=== PATIENT | female | born 1950 | race African-American/Black ===

== ENCOUNTER 2016-05-05 16:37 | Emergency (ER) | payer MEDICARE, OTHER ==
[2016-05-05 15:53] LABS: BASOPHILS 0.2 %; BASOPHILS ABSOLUTE 0.01 10/3/uL (0.0-0.16); EOSINOPHILS 4.9 %; EOSINOPHILS ABSOLUTE 0.27 10/3/uL (0.0-0.53); ER CBC TAT 0 Hrs 07 Mins; HEMATOCRIT 35.5 % (36.0-48.0); HEMOGLOBIN 11.6 g/dL (12.0-16.0); IMMATURE GRANULOCYTES 0.2 %; IMMATURE GRANULOCYTES ABSOLUTE 0.01 10/3/uL (0.0-0.11); LYMPHOCYTES 35.5 %; LYMPHOCYTES ABSOLUTE 1.94 10/3/uL (0.67-4.30); MANUAL DIFF NO %; MEAN CORPUS HGB CONC 32.7 g/dL (32.0-36.0); MEAN CORPUSCULAR HEMOGLOB 32.6 pg (26.0-34.0); MEAN CORPUSCULAR VOLUME 99.7 fL (80-100); MEAN PLATELET VOLUME 10.8 fL (9.2-13.0); MONOCYTES 7.1 %; MONOCYTES ABSOLUTE 0.39 10/3/uL (0.21-1.20); NEUTROPHILS 52.1 %; NEUTROPHILS ABSOLUTE 2.85 10/3/uL (2.02-8.40); PLATELET COUNT 232 10/3/uL (150-400); RBC DISTRIBUTION WIDTH 15.9 % (12.0-16.0); RED CELL COUNT 3.56 10/6/uL (4.0-5.6); WHITE BLOOD CELLS 5.5 10/3/uL (4.5-10.5)
[~2016-05-05 16:37] MED LIST: BEN25 PO; DSS PO; FLONASE NAS; LYRICA100 MG PO; MIDODRINE10 MG PO; MIRALAXPKT PO; NEXIUM20 M1 PO; PERCOCET1 TA4 PO; PRILO PO; PROAIR HFA INH; PROAMAT5 PO; PROAMATINE10 MG PO; RENA-VITE PO; SENSIPAR90 MG PO; TEARS PLUS OPH; TRAZ50 PO; VENTOLIN HFA INH; VITAMIN D1000 UNI1 PO; X5 PO; ZOL100 PO
[2016-05-05 16:48] LABS: INTERNATIONAL NORMAL RATI 1.2 UNITS (-); PROTIME (NOT ORD) 15.3 SEC (12.0-14.5)
[2016-05-05 16:49] LABS: PARTIAL THROMBO TIME 32.9 SEC (22.5-37.2)
[2016-05-05 17:02] LABS: A/G RATIO 0.8 (0.7-1.9); ALBUMIN 3.4 G/DL (3.5-5.0); BUN (BLOOD UREA NITROGEN) 56 MG/DL (6-23); CHLORIDE, SERUM 105 MMOL/L (96-112); GFR AFRICAN AMERICAN 4 ML/MIN (>=60); GFR NON AFRICAN AMERICAN 3 ML/MIN (>=60); GLOBULIN 4.5 G/DL (2.5-4.1); SGPT(ALT) 16 U/L (5-65); SODIUM, SERUM 140 MMOL/L (135-148); TOTAL PROTEIN 7.9 G/DL (6.0-8.5)
[2016-05-05 17:05] LABS: ALKALINE PHOSPHATASE 582 U/L (45-117); CO2 (CARBON DIOXIDE) 23 MMOL/L (24-34); GLUCOSE, SERUM 111 MG/DL (60-99); SGOT(AST) 30 U/L (5-40); TOTAL BILIRUBIN 0.3 MG/DL (0-1.2)
[2016-05-05 17:12] LABS: POTASSIUM, SERUM 5.1 MMOL/L (3.5-5.3)
[2016-08-09] MEDS ORDERED: SENSIPAR30 MG PO (23:27)
[2016-08-09] MEDS ORDERED: VITAMIN D2000 UNIT PO (23:27)
[2016-08-09] MEDS ORDERED: BEN25 PO (23:28)
[2016-08-09] MEDS ORDERED: HEPA50006 SC (23:28)
[2016-08-09] MEDS ORDERED: PROAMATINE10 MG PO (23:29)
[2016-08-09] MEDS ORDERED: LIDODERM TOP (23:29)
[2016-08-09] MEDS ORDERED: PREPARATIO2 PR (23:30)
[2016-08-09] MEDS ORDERED: PROTONIX PO (23:30)
[2016-08-09] MEDS ORDERED: SEVE800T PO (23:31)
[2016-08-09] MEDS ORDERED: 8 HOUR650 MG PO (23:31)
[2016-08-09] MEDS ORDERED: X5 PO (23:32)
[2016-08-09] MEDS ORDERED: DUONEB INH (23:32)
[2016-08-09] MEDS ORDERED: IMOD PO (23:33)
[2016-08-09] MEDS ORDERED: DSS PO (23:33)
[2016-08-09] MEDS ORDERED: ZOFRAN4 PO (23:33)
[2016-08-09] MEDS ORDERED: OXYCOD PO (23:34)
[2016-08-09] MEDS ORDERED: MYTAB GAS80 MG PO (23:34)
== END 2016-05-05 19:25 | disposition home or self-care (01) ==
LOC: ER 16:37
PROVIDERS: Emergency Medicine; Nurse Practitioner Acute Care
DX: K92.1 Melena (principal); R19.7 Diarrhea, unspecified; D64.9 Anemia, unspecified; Z88.0 Allergy status to penicillin; Z91.040 Latex allergy status; Z79.899 Other long term (current) drug therapy; Z12.31 Encounter for screening mammogram for malignant neoplasm of breast; N63 Unspecified lump in breast; Z91.89 Other specified personal risk factors, not elsewhere classified
CPT/HCPCS: 74176; 76642; 80053; 83690; 85025; 85610; 85730; 96374; 99285; J2405